=== PATIENT | female | born 1955 | race Caucasian/White ===

== ENCOUNTER 2017-03-26 13:04 | Emergency (ER) | payer OTHER ==
--- NOTE | ~2017-03-26 | CR229 ---
[facility]. [facility] A Service of [facility] & [facility] RADIOLOGY TEXT RESULTS PATIENT: LISANDRO VIZCAINO LOCATION: SED : 53 UNIT #: [id number] AGE: [address]: Amie Jerry SEX: F ORDER DR: [id number] [address] [address] [id number] E MR#: [id number] Acc #: [id number] NAME: LISANDRO VIZCAINO : 1955 SEX: F STUDY DATE/TIME: 03/26/2017 13:22 UNIT: SED ROOM: STUDY DESCRIPTION: CR Shoulder Min 2 View Lt Attending Physician: Amie Jerry P.A.-C. Ordering Physician: Amie Jerry P.A.-C. Primary Care Physician: Souleymane Raya M.D. MEDICAL IMAGING REPORT This report is preliminary unless electronic signature is present. EXAM Left shoulder. INDICATIONS Left shoulder pain, status post trauma. Fall 2 weeks ago. FINDINGS Three views of the left shoulder without comparison. There is no acute fracture or dislocation. The glenohumeral joint is normal. 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 IMPRESSION Arthropathy of the left AC joint. No acute findings. Dictated by... Christo Zamora M.D. THIS IS AN ELECTRONICALLY VERIFIED REPORT Christo Zamora M.D. at 03/26/2017 4:54 PM JESSY/tarsha TD: 03/26/2017 16:48 JOB #: [id number] MEDICAL IMAGING REPORT Page 1 of 1
[~2017-03-26 13:04] MED LIST: ALBUTEROL17 GM INH; BENZONATATE PO; DOXYCYCLINE HY100 M3 PO; LEVAQUIN PO; PREDNISONE PO; PREDNISONE10 MG PO
[2017-03-26] MEDS ORDERED: BREO ELLIPTA I1 EACH (13:09)
[2017-03-26] MEDS ORDERED: ASPIRIN81 M2 (13:09)
[2017-03-26] MEDS ORDERED: PROZAC40 MG (13:10)
[2017-03-26] MEDS ORDERED: OMEPRAZOLE10 M1 (13:10)
== END 2017-03-26 14:05 | disposition home or self-care (01) ==
LOC: SED 13:04
DX: S43.422A Sprain of left rotator cuff capsule, initial encounter (principal); J44.9 Chronic obstructive pulmonary disease, unspecified; W22.8XXA Striking against or struck by other objects, initial encounter; Y92.009 Unspecified place in unspecified non-institutional (private) residence as the place of occurrence of the external cause
CPT/HCPCS: 73030; 99283